=== PATIENT | male | born 1960 | race Caucasian/White ===

== ENCOUNTER 2020-08-30 12:44 | Inpatient (IN) | payer OTHER ==
[~2020-08-30] VITALS: Ht 170 cm; Wt 96.5 kg
[2020-08-30 14:56] LABS: HEMOGLOBIN 11.6 gm/dl (14.0-17.5); RED BLOOD COUNT 3.93 M/UL (4.20-5.50); WHITE BLOOD COUNT 13.9 K/UL (4.5-11.0)
[2020-08-30 15:32] LABS: BUN/CREATININE RATIO 14 (0-10)
[2020-08-30] MEDS ORDERED: DOXAZOSIN MESYLA1 MG PO (20:54)
[2020-08-30] MEDS ORDERED: FAMOTIDINE20 MG PO (20:55)
[2020-08-30] MEDS ORDERED: FERROUS SULFAT324 MG PO (20:55)
[2020-08-30] MEDS ORDERED: IPRAT-ALBUT 0.5-3 ML INH (20:56)
[2020-08-30] MEDS ORDERED: PULMICORT0.5 MG/21 INH (20:57)
[2020-08-30 21:33] LABS: HEMOGLOBIN 11.3 gm/dl (14.0-17.5); RED BLOOD COUNT 3.82 M/UL (4.20-5.50); WHITE BLOOD COUNT 17.8 K/UL (4.5-11.0)
[2020-08-30 21:55] LABS: BUN/CREATININE RATIO 18 (0-10)
[2020-08-31 02:48] LABS: HEMOGLOBIN 11.9 gm/dl (14.0-17.5); RED BLOOD COUNT 4.02 M/UL (4.20-5.50); WHITE BLOOD COUNT 15.6 K/UL (4.5-11.0)
[2020-08-31 03:07] LABS: BUN/CREATININE RATIO 20 (0-10)
[2020-08-31 09:36] LABS: HEMOGLOBIN 11.7 gm/dl (14.0-17.5); RED BLOOD COUNT 3.99 M/UL (4.20-5.50)
[2020-08-31 09:43] LABS: WHITE BLOOD COUNT 11.5 K/UL (4.5-11.0)
[2020-08-31 10:00] LABS: BUN/CREATININE RATIO 21 (0-10)
[2020-08-31 15:17] LABS: HEMOGLOBIN 11.6 gm/dl (14.0-17.5); RED BLOOD COUNT 3.95 M/UL (4.20-5.50)
[2020-08-31 15:44] LABS: WHITE BLOOD COUNT 15.6 K/UL (4.5-11.0)
[2020-08-31 15:47] LABS: BUN/CREATININE RATIO 24 (0-10)
[2020-08-31 16:20] LABS: ACINETOBACTER BAUMANNII Not Detected (Negative); CANDIDA ALBICANS Not Detected (Negative); CANDIDA KRUSEI Not Detected (Negative); CANDIDA TROPICALIS Not Detected (Negative); ENTEROCOCCUS Not Detected (Negative); ESCHERICHIA COLI Not Detected (Negative); HAEMOPHILUS INFLUENZAE Not Detected (Negative); KLEBSIELLA OXYTOCA Not Detected (Negative); KLEBSIELLA PNEUMONIAE Not Detected (Negative); KPC-CARBAPENEM-RESISTANCE GENE Not Detected (Negative); PROTEUS Not Detected (Negative); PSEUDOMONAS AERUGINOSA Not Detected (Negative); SERRATIA MARCESANS Not Detected (Negative); STAPHYLOCOCCUS AUREUS Not Detected (Negative); STREP AGALACTIAE (GROUP B) Not Detected (Negative); STREP PYOGENES (GROUP A) Not Detected (Negative); STREPTOCOCCUS Not Detected (Negative); mecA (METHICILLIN RESIST GENE Not Detected (Negative); vanA/B (VANCOMYCIN RESIST GENE Not Detected (Negative)
[2020-08-31 17:37] LABS: STAPHYLOCOCCUS DETECTED (Negative)
[2020-08-31 20:06] LABS: HEMOGLOBIN 12.2 gm/dl (14.0-17.5); RED BLOOD COUNT 4.1 M/UL (4.20-5.50); WHITE BLOOD COUNT 18.7 K/UL (4.5-11.0)
[2020-08-31 20:29] LABS: BUN/CREATININE RATIO 22 (0-10)
[2020-09-01 01:48] LABS: BUN/CREATININE RATIO 22 (0-10)
[2020-09-01 05:10] LABS: RED BLOOD COUNT 4.02 M/UL (4.20-5.50); WHITE BLOOD COUNT 22.3 K/UL (4.5-11.0)
[2020-09-01 05:39] LABS: BUN/CREATININE RATIO 21 (0-10)
[2020-09-02 20:09] LABS: HEMOGLOBIN 11.5 gm/dl (14.0-17.5); RED BLOOD COUNT 3.87 M/UL (4.20-5.50); WHITE BLOOD COUNT 16.3 K/UL (4.5-11.0)
[2020-09-03 05:04] LABS: HEMOGLOBIN 11.3 gm/dl (14.0-17.5); RED BLOOD COUNT 3.8 M/UL (4.20-5.50); WHITE BLOOD COUNT 16.1 K/UL (4.5-11.0)
[2020-09-03 15:11] LABS: HEMOGLOBIN 10.3 gm/dl (14.0-17.5); RED BLOOD COUNT 3.51 M/UL (4.20-5.50); WHITE BLOOD COUNT 13.7 K/UL (4.5-11.0)
[2020-09-03 19:59] LABS: HEMOGLOBIN 9.8 gm/dl (14.0-17.5); RED BLOOD COUNT 3.46 M/UL (4.20-5.50); WHITE BLOOD COUNT 11.6 K/UL (4.5-11.0)
[2020-09-03 20:46] LABS: BUN/CREATININE RATIO 12 (0-10); GAMMA GLUTAMYL TRANSPEPTIDASE 8 U/L (7-64)
[2020-09-04 02:44] LABS: HEMOGLOBIN 9.7 gm/dl (14.0-17.5); RED BLOOD COUNT 3.26 M/UL (4.20-5.50); WHITE BLOOD COUNT 10.8 K/UL (4.5-11.0)
[2020-09-04 08:21] LABS: RED BLOOD COUNT 3.1 M/UL (4.20-5.50)
[2020-09-04 08:24] LABS: WHITE BLOOD COUNT 9.8 K/UL (4.5-11.0)
[2020-09-04 15:21] LABS: HEMOGLOBIN 8.1 gm/dl (14.0-17.5); WHITE BLOOD COUNT 8.9 K/UL (4.5-11.0)
[2020-09-04 15:22] LABS: RED BLOOD COUNT 2.72 M/UL (4.20-5.50)
[2020-09-04 20:24] LABS: HEMOGLOBIN 8.1 gm/dl (14.0-17.5); RED BLOOD COUNT 2.74 M/UL (4.20-5.50); WHITE BLOOD COUNT 8.7 K/UL (4.5-11.0)
[2020-09-05 03:00] LABS: HEMOGLOBIN 8.3 gm/dl (14.0-17.5); RED BLOOD COUNT 2.86 M/UL (4.20-5.50); WHITE BLOOD COUNT 10.2 K/UL (4.5-11.0)
[2020-09-05 08:17] LABS: HEMOGLOBIN 8.6 gm/dl (14.0-17.5); RED BLOOD COUNT 2.91 M/UL (4.20-5.50); WHITE BLOOD COUNT 10.1 K/UL (4.5-11.0)
== END 2020-09-03 12:30 | disposition expired | DRG 4 ==
LOC: ER1 12:44 → CDU 17:49 → CCU 20:40
PROVIDERS: Internal Medicine; Internal Medicine Pulmonary Disease; Student in an Organized Health Care Education/Training Program; ADMIT Internal Medicine
PROC: 5A12012 Performance of Cardiac Output, Single, Manual (ICD-10-PCS; principal; 2020-08-30)
PROC: 0B113F4 Bypass Trachea to Cutaneous with Tracheostomy Device, Percutaneous Approach (ICD-10-PCS; 2020-08-30)
PROC: 5A1955Z Respiratory Ventilation, Greater than 96 Consecutive Hours (ICD-10-PCS; 2020-08-30)
PROC: 3E043XZ Introduction of Vasopressor into Central Vein, Percutaneous Approach (ICD-10-PCS; 2020-08-30)
DX: J39.8 Other specified diseases of upper respiratory tract (principal); J96.02 Acute respiratory failure with hypercapnia; J69.0 Pneumonitis due to inhalation of food and vomit; J96.01 Acute respiratory failure with hypoxia; G93.1 Anoxic brain damage, not elsewhere classified; N17.9 Acute kidney failure, unspecified; G93.40 Encephalopathy, unspecified; E87.2 Acidosis; R57.8 Other shock; I46.9 Cardiac arrest, cause unspecified; K21.9 Gastro-esophageal reflux disease without esophagitis; I48.0 Paroxysmal atrial fibrillation; D64.9 Anemia, unspecified; I25.10 Atherosclerotic heart disease of native coronary artery without angina pectoris; Z20.822 Contact with and (suspected) exposure to COVID-19; J44.9 Chronic obstructive pulmonary disease, unspecified; I50.9 Heart failure, unspecified; I11.0 Hypertensive heart disease with heart failure; R34 Anuria and oliguria; E11.65 Type 2 diabetes mellitus with hyperglycemia; Z86.711 Personal history of pulmonary embolism; Z93.0 Tracheostomy status; Z86.718 Personal history of other venous thrombosis and embolism; Z79.84 Long term (current) use of oral hypoglycemic drugs
CPT/HCPCS: ECHO; 0240U; 31500; 36415; 36600; 70450; 71045; 71250; 78610; 80048; 80053; 81001; 82150; 82248; 82330; 82550; 82553; 82803; 82962; 82977; 83036; 83605; 83690; 83735; 83874; 83880; 83930; 83935; 84100; 84132; 84484; 85025; 85384; 85610; 85730; 86850; 86900; 86901; 87040; 87077; 87150; 87186; 92950; 93005; 93306; 93308; 94002; 94003; 94640; 94664; 94760; 95819; 99285; A9512; C1760; C1769; C9113; J0171; J0330; J0461; J0610; J0690; J1644; J1650; J2020; J2185; J2250; J2310; J2370; J2930; J3010; J3370; J3475; J3480; J7030; J7040; J7070; P9045; P9047; Q9965; U0002